=== PATIENT | female | born 1975 | race Caucasian/White ===

== ENCOUNTER → 2016-10-26 | Outpatient (CLI) | payer BC ==
--- NOTE | 2016-10-26 14:19 | MG ---
Examination: Unilateral right diagnostic mammogram and right breast ultrasound. Clinical history: Abnormal screening mammogram. Technique: Additional digital images of the right breast were obtained. Targeted right breast ultras ound was also obtained evaluating the upper outer aspect of the right breast. Comparison: Baseline screening mammogram dated 10/18/2016. Findings: The right breast is composed of scattered fibroglandular densities. There is an area of asymmetrically increased density present in the upper outer aspect of the right breast, likely representing normal fibroglandular tissue. Additional images obtained reveal no suspi cious mass or area of architectural distortion. Targeted right breast ultrasound evaluating the upper outer aspect of the right breast reveals a foc al area of confluent ductal ectasia within dense fibroglandular tissue seen at the 10 o'clock positi on. This area has moderate posterior acoustic shadowing, likely related to the dense fibroglandular tissue. A followup right diagnostic mammogram and right breast ultrasound is recommended in 6 months to ensure stability of the findings in the right breast. Impression: 1. Probably benign findings in the right breast, as described above. BI-RADS category 3/III (THREE) - PROBABLY BENIGN FINDING; SHORT INTERVAL FOLLOW-UP SUGGESTED. Recommend a followup right diagnostic mammogram and right breast ultrasound in [address] ability of the findings in the right breast. Diagnostic CAD was utilized and reviewed. * 0 (ZERO) - ASSESSMENT INCOMPLETE; ADDITIONAL IMAGING IS NEEDED. * 0C - ASSESSMENT INCOMPLETE, NEEDS ADDITIONAL IMAGING EVALUATION AND/OR PRIOR MAMMOGRAMS FOR COMPAR ARTHUR. * 1/1 (ONE) - NEGATIVE. * 2/II (TWO) - BENIGN FINDINGS. * 3/III (THREE) - PROBABLY BENIGN FINDING; SHORT INTERVAL FOLLOW-UP SUGGESTED. * 4/IV (FOUR) - SUSPICIOUS ABNORMALITY; BIOPSY SHOULD BE CONSIDERED. * 5/V - HIGHLY SUSPICIOUS OF MALIGNANCY; BIOPSY SHOULD BE PERFORMED. * 6/IV - KNOWN BIOPSY PROVEN MALIGNANCY-APPROPRIATE ACTION SHOULD BE TAKEN. A NEGATIVE X-RAY REPORT SHOULD NOT DELAY BIOPSY IF A DOMINANT OR CLINICALLY SUSPICIOUS MASS IS PRESENT; 4 TO 8 PERCENT OF CANCERS ARE NOT IDENTIFIED BY X-RAY. A NEGATIVE REPORT MAY REINFORCE THE CLINICAL IMPRESSION. ADENOSIS AND DENSE BREASTS MAY OBSCURE AN UNDERLYING NEOPLASM. Reported By:
== END ==
LOC: RAD 12:45
PROVIDERS: ATTEND Obstetrics & Gynecology
DX: R92.8 Other abnormal and inconclusive findings on diagnostic imaging of breast (principal)
CPT/HCPCS: 76642; 77065

== ENCOUNTER → 2017-04-19 | Outpatient (CLI) | payer BC ==
--- NOTE | 2017-04-19 14:25 | MG ---
HISTORY: Six-month followup right breast focal asymmetry and fibrocystic change. Right breast digital diagnostic mammography with CAD and right breast ultrasound. Comparison: October 18, 2016 FINDINGS: Mammogram: Spot-compression and mL views of the right breast were obtained. Scattered dense fibrogla ndular tissue is seen to be present with developing global asymmetry throughout the upper outer quadr ant right breast which will be correlated with ultrasound. Findings appear slightly more prominent t strick[place] on previous imaging without a focal discrete dominant mass or architectural distortion. No skin thickening or nipple retraction is appreciated. No pathological lymphadenopathy can be identified. Ultrasound: Multiple grayscale and color Doppler images of the upper outer quadrant right breast were obtained. At 10 o'clock approximately 8 cm from the nipple, there is a horizontally oriented irregul ar and ill-defined heterogeneous region of hypoechoic shadowing and internal vascularity measuring 1. 7 cm on today's exam and measuring 1.5 cm on the prior which could reflect focal dense fibrocystic ch stephen but for which tissue sampling is recommended given the increased prominence both mammographicall y and sonographically. IMPRESSION: Developing global asymmetry upper outer quadrant right breast with an indeterminate hete rogeneous 1.7 cm lesion at 10 o'clock approximately 8 cm from the nipple for which ultrasound-guided biopsy with clip placement is recommended. Alternatively, bilateral breast MRI without and with cont rast could be considered. ACR CATEGORY 4 - suspicious abnormality; biopsy should be considered. Diagnostic CAD was utilized and reviewed. * 0 (ZERO) - ASSESSMENT INCOMPLETE; ADDITIONAL IMAGING IS NEEDED. * 1/1 (ONE) - NEGATIVE. * 2/II (TWO) - BENIGN FINDINGS. * 3/III (THREE) - PROBABLY BENIGN FINDING; SHORT INTERVAL FOLLOW-UP SUGGESTED. * 4/IV (FOUR) - SUSPICIOUS ABNORMALITY; BIOPSY SHOULD BE CONSIDERED. * 5/V (FIVE) - HIGHLY SUSPICIOUS OF MALIGNANCY; BIOPSY SHOULD BE PERFORMED. A NEGATIVE X-RAY REPORT SHOULD NOT DELAY BIOPSY IF A DOMINANT OR CLINICALLY SUSPICIOUS MASS IS PRESENT; 4 TO 8 PERCENT OF CANCERS ARE NOT IDENTIFIED BY X-RAY. A NEGA TIVE REPORT MAY REINFORCE THE CLINICAL IMPRESSION. ADENOSIS AND DENSE BREASTS MAY OBSCURE AN UNDERLY ING NEOPLASM. Reported By:
== END ==
LOC: RAD 12:51
PROVIDERS: ATTEND Obstetrics & Gynecology
DX: R92.8 Other abnormal and inconclusive findings on diagnostic imaging of breast (principal)
CPT/HCPCS: 76642; 77065

== ENCOUNTER 2017-05-18 08:30 | Day surgery (SDC) | payer BC ==
[~2017-05-18 08:30] MED LIST: ANCEF VIAL 1 GM ONE; NS 1000 ML 1,000 ML ONE; NS 50 ML IV + SPIKE MINIBAG* 50 ML IV ONE
[2017-05-18] MEDS ORDERED: MARCAINE 0.25% INJ ONE (10:06)
[2017-05-18] MEDS ORDERED: XYLOCAINE 1% and EPINEPHRINE 1:100,000 ONE (10:06)
[2017-05-18] MEDS ORDERED: FENTANYL INJ 100 mcg ONE (10:51)
[2017-05-18] MEDS ORDERED: NS IRRIGATION 1000 ML 1,000 ML IR ONE (11:00)
--- NOTE | 2017-05-18 12:40 | OR.GENERIC ---
Post-Op Note Generic - Post-Op Note Operative Report: Operative Report Date of Operation: May 18, 2017 Pre-Operative Diagnosis: 1. Family history of breast cancer. 2. Right breast lesion at 10 o clock. Post-Operative Diagnosis: 1. Family history of breast cancer. 2. Right breast lesion at 10 o clock. Procedure: Ultrasound guided core needle biopsy of right breast lesion (10 o clock). Surgeon: Ross Alicia MD. System Analyst: Heather Cui CRNA. Specimen: Right breast lesion at 10 oclock. Estimated blood loss: Minimal. Complications: None. Summary: The patient is a 42 year old female who presented with an abnormal mammogram and ultrasound of the right breast. The patient has a family history of breast cancer. The patient was offered ultrasound guided core needle biopsy of the lesion. The risk and benefits of the procedure including difficulty with anesthesia, bleeding, infection, inadequate sampling, scar formation, as well as nerve injury were discussed with the patient. The patient understood these risks and requested the procedure. On May 18, 2017, the patient was brought to the operative theatre and placed in the supine position. A time-out was performed verifying the patient and procedure. After satisfactory induction of monitored anesthesia care, the right breast was prepped and draped in the usual sterile fashion. The lesion was visualized on ultrasound at 10 oclock approximately 5 cm from the nipple. The skin was anesthetized with local anesthetic and a small incision made with a scalpel. A trocar was advanced through the incision and directed to the lesion. Multiple 14 gauge core needle biopsies were obtained and sent to pathology. The skin edges re-approximated using an inverted 4-0 Monocryl stitch. Benzoin and steri-strips were placed. A sterile dressing was placed. The patient was awakened and taken to the recovery room in stable condition. There were no complications. All counts were correct.
[2017-05-18 12:45] VITALS: BP 142/89
[2017-05-18] MEDS ORDERED: VERSED ONE (15:10)
[2017-05-18] MEDS ORDERED: DIPRIVAN VIAL ONE (15:10)
== END 2017-05-18 12:37 | disposition home or self-care (01) | DRG 601 ==
LOC: SURG1 08:30
PROVIDERS: ATTEND Student in an Organized Health Care Education/Training Program
PROC: 0HBT3ZX Excision of Right Breast, Percutaneous Approach, Diagnostic (ICD-10-PCS; principal; 2017-05-18 08:30)
DX: N63.10 Unspecified lump in the right breast, unspecified quadrant (principal); Z80.3 Family history of malignant neoplasm of breast
CPT/HCPCS: A4222; S0020; J0690; J2001; J2250; J3010; J3490